=== PATIENT | male | born 1975 | race Caucasian/White ===

== ENCOUNTER 2021-04-04 20:50 | Emergency (ER) | payer OTHER, SELFPAY ==
--- NOTE | 2021-04-04 20:58 | CTR_ITS ---
PROCEDURE INFORMATION: Exam: CT Head Without Contrast Exam date and time: 04/04/2021 8:58 PM Age: 46 years old Clinical indication: Speech disturbance and weakness, extremity; Right; Patient HX: C/O R sided weakness and slurred speech TECHNIQUE: Imaging protocol: Computed tomography of the head without contrast. Radiation optimization: All CT scans at this facility use at least one of these dose optimization techniques: automated exposure control; mA and/or kV adjustment per patient size (includes targeted exams where dose is matched to clinical indication); or iterative reconstruction. COMPARISON: No relevant prior studies available. RADIATION DOSE METRICS: Total DLP (mGy-cm): 1708.7 FINDINGS: Brain: There is no acute intracranial hemorrhage or abnormal extra-axial fluid collection identified. There is no intracranial mass effect or shift of midline structures. The greer-white differentiation is preserved throughout. Cerebral ventricles: There is no sulcal or ventricular effacement. The basilar cisterns are open. No hydrocephalus. Paranasal sinuses: The visualized sinuses are unremarkable. Mastoid air cells: There is no mastoid effusion detected. Orbital cavity: Bilateral proptosis is noted. Correlate with clinical information regarding thyroid function. Bones/joints: No calvarial fracture or destructive osseous lesions are seen. Soft tissues: Unremarkable. CT/CT head wo con* [id number] IMPRESSION: No acute intracranial pathology identified by CT. If there is persistent clinical concern, suggest follow-up MRI. Radiation Dose CTDIVOL = (mGy): DLP = 1708.7 (mGy-cm)
[2021-04-04 21:04] VITALS: BP 130/94; PULSE 97; RESP 19; TEMP 37.1; O2SAT 97; BMI 24.8
--- NOTE | 2021-04-04 21:12 | ECG_ITS ---
[facility] Test Date: 2021-04-04 Pat Name: Zak Maurer Department: Room: Gender: Male Payroll Secretary: : 1975 Requested By: Damon Lee Order Number: [id number] Reading MD: GREGORIO RDZ Measurements Intervals Majestic Rate: 95 P: 38 NC: 143 QRS: 12 QRSD: 91 T: 30 QT: 350 QTc: 442 Interpretive Statements SINUS RHYTHM No previous ECG available for comparison Electronically Signed On 04-05-2021 12:52:14 BRAKE LINING DRILLER by GREGORIO RDZ [id number]
--- NOTE | 2021-04-04 21:12 | CTR_ITS ---
PROCEDURE INFORMATION: Exam: CT Angiography Head With Contrast, Arteriography Exam date and time: 04/04/2021 9:12 PM Age: 46 years old Clinical indication: Speech disturbance and weakness; Patient HX: C/O R sided weakness and slurred speech; Additional info: Headache, weakness TECHNIQUE: Imaging protocol: Computed tomography angiography of the head with contrast. Exam focused on the arteries. 3D rendering (Not supervised by radiologist): MIP and/or 3D reconstructed images were created by the technologist. Radiation optimization: All CT scans at this facility use at least one of these dose optimization techniques: automated exposure control; mA and/or kV adjustment per patient size (includes targeted exams where dose is matched to clinical indication); or iterative reconstruction. Contrast material: OMNI 350; Contrast volume: 95 ml; Contrast route: INTRAVENOUS (IV); COMPARISON: CT head wo con* [id number] 04/04/2021 9:50 PM RADIATION DOSE METRICS: Total DLP (mGy-cm): 2229.66 FINDINGS: ANTERIOR CIRCULATION: Right internal carotid artery: Unremarkable. Intracranial segment is patent with no significant stenosis. No aneurysm. Right middle cerebral artery: Unremarkable. No occlusion or significant stenosis. No aneurysm. Right anterior cerebral artery: Unremarkable. No occlusion or significant stenosis. No aneurysm. Left internal carotid artery: Unremarkable. Intracranial segment is patent with no significant stenosis. No aneurysm. Left middle cerebral artery: Unremarkable. No occlusion or significant stenosis. No aneurysm. Left anterior cerebral artery: Unremarkable. No occlusion or significant stenosis. No aneurysm. POSTERIOR CIRCULATION: Right vertebral artery: Unremarkable. No occlusion or significant stenosis. No aneurysm. Left vertebral artery: Unremarkable. No occlusion or significant stenosis. No aneurysm. Basilar artery: Unremarkable. No occlusion or significant stenosis. No aneurysm. Right posterior cerebral artery: Unremarkable. No occlusion or significant stenosis. No aneurysm. Left posterior cerebral artery: Unremarkable. No occlusion or significant stenosis. No aneurysm. IMPRESSION: No large vessel stenosis or occlusion. PROCEDURE INFORMATION: Exam: CT Angiography Neck With Contrast Exam date and time: 04/04/2021 9:12 PM Age: 46 years old Clinical indication: Speech disturbance and weakness; Patient HX: C/O R sided weakness and slurred speech; Additional info: Headache, weakness TECHNIQUE: Imaging protocol: Computed tomography angiography of the neck with contrast. 3D rendering (Not supervised by radiologist): MIP and/or 3D reconstructed images were created by the technologist. Radiation optimization: All CT scans at this facility use at least one of these dose optimization techniques: automated exposure control; mA and/or kV adjustment per patient size (includes targeted exams where dose is matched to clinical indication); or iterative reconstruction. Contrast material: OMNI 350; Contrast volume: 95 ml; Contrast route: INTRAVENOUS (IV); COMPARISON: CT head wo con* [id number] 04/04/2021 9:50 PM RADIATION DOSE METRICS: Total DLP (mGy-cm): 2229.66 FINDINGS: Right common carotid artery: No stenosis. No dissection or occlusion. Right internal carotid artery: No stenosis of the extracranial segment. No dissection or occlusion. Right external carotid artery: No occlusion or stenosis of the origin. Left common carotid artery: No stenosis. No dissection or occlusion. Left internal carotid artery: No stenosis of the extracranial segment. No dissection or occlusion. Left external carotid artery: No occlusion or stenosis of the origin. Right vertebral artery: No stenosis. No dissection or occlusion. Left vertebral artery: No stenosis. No dissection or occlusion. Lymph nodes: Multiple small to mildly prominent cervical and supraclavicular lymph nodes are nonspecific. CT/CT angio headneck* [id number] IMPRESSION: No acute vascular abnormality identified in the neck. REFERENCES: NASCET CRITERIA. The degree of internal carotid artery stenosis is based on NASCET criteria. Normal is no stenosis. Mild is less than 50% stenosis. Moderate is 50-69% stenosis. Severe is 70% to 99% stenosis. Total occlusion is no detectable patent lumen. Radiation Dose CTDIVOL = (mGy): DLP = 2229.66~2229.66 (mGy-cm)
[2021-04-04] MEDS: HYDROmorphone 1 mg/mL INJ 1 mL IVP (21:19)
[2021-04-04] MEDS: ondansetron 2 mg/ML SDV 2 mL 4 MG IVP (21:20)
[2021-04-04 21:31] LABS: Basophils # 0.1 10^3/uL (0.0-0.1); Basophils % 0.9 %; Eosinophils # 0.1 10^3/uL (0.0-0.8); Hematocrit 41.8 % (42.0-52.0); Hemoglobin 14.7 g/dL (11.7-16.6); Lymphocytes # 2.1 10^3/uL (0.8-4.8); Lymphocytes % 31.5 %; Mean Corpuscular HGB Conc 35.2 g/dL (30.0-36.0); Mean Corpuscular Hemoglobin 32.6 pg (28.0-34.0); Mean Corpuscular Volume 92.7 fl (80-94); Monocytes # 0.9 10^3/uL (0.2-0.9); Monocytes % 13.1 %; Neutrophils % 52.2 %; Nucleated Red Blood Cells % 0 %; Platelet Count 277 10^3/cmm (130-400); Red Blood Count 4.51 10^6/uL (4.1-5.3); Red Cell Distribution Width 11.1 % (12.1-15.1); White Blood Count 6.5 10^3/uL (4.0-10.0)
--- NOTE | 2021-04-04 21:39 | W.ED.NEUROSD ---
HPI - Neuro Symptoms/Deficit General: Chief Complaint: Neuro Symptoms/Deficit Stated Complaint: Stroke Symptoms Time Seen by Provider: 04/04/21 21:12 History of Present Illness: HPI Narrative: 46-year-old male who says he had a stroke 3 days ago. He was seen at an outside facility ([facility] in [place]). He left there AMA. He had some residual right-sided weakness, trouble with speech, trouble swallowing, and trouble following directions with some mental status changes. His main complaint tonight is that of a headache. His headache is posterior and radiates down to his shoulders bilaterally. He does not know any of the results of his tests that he had at [facility]. He woke up on the floor, was scared and left. Onset (ago): day(s) Timing confirmed by: spouse Location: speech, right arm and right leg History of same: Yes Severity: moderate Quality: weak, numb and tingling Relieving factors: none Exacerbating factors: none On Anticoagulants: No Associated symptoms: Reports headache(s), tingling and weakness; Deny chest pain, cough, diaphoresis, fevers/chills, nausea, seizures, short of breath or vomiting Treatments Prior to Arrival: other Review of Systems Const: Denies: fever(s) or diaphoresis Card: Denies: chest pain Resp: Denies: dyspnea, productive cough or non-productive cough GI: Denies: nausea or vomiting Neuro: Reports: headache(s) NIH stroke score NIHSS: Level Of Consciousness - 1a: 0 Level Of Consciousness Questions - 1b: Both Correct Level Of Consciousness Commands - 1c: Both Correct Best Gaze - 2: Normal Visual Brito - 3: No Visual Loss Facial Palsy - 4: Normal Motor Arm Right - 5: No Drift Motor Arm Left - 5: No Drift Motor Leg Right - 6: No Drift Motor Leg Left - 6: No Drift Limb Ataxia - 7: Absent Sensory - 8: Normal Best Language - 9: Mild/Moderate Aphasia Dysarthia - 10: Mild/Moderate Dysarthia Extinction And Inattention - 11: 0 Score: Total Score: 2 Physical Exam Const: COMMON NORMALS: no acute distress GENERAL APPEARANCE: cooperative, well developed and lethargic (Very mildly) ORIENTATION/CONSCIOUSNESS: Yes lethargic (Very mildly) HENMT: COMMON NORMALS: normocephalic, atraumatic and Normal external nose present HEAD & SCALP: normocephalic and atraumatic FACE & SINUS: normal facial exam NOSE: Normal external nose present MOUTH: Normal oral and palatal mucosa present THROAT: posterior oropharynx normal Eye: COMMON NORMALS: Equal, round and reactive pupils present and EOMs intact bilaterally VISUAL BRITO: No peripheral vision loss and No central vision loss PUPIL: Yes Equal, round and reactive pupils present Neuro: SENSORIUM/ORIENTATION: Yes lethargic (Very mildly) Course Vital Signs: Vital signs: Vital Signs Temperature 98.8 F 04/04/21 21:04 Pulse Rate 88 04/04/21 23:24 Respiratory Rate 16 04/04/21 23:24 Blood Pressure 116/63 04/04/21 23:24 Pulse Oximetry 96 04/04/21 23:24 MDM - Neuro Symptoms/Deficit MDM Narrative: Medical decision making narrative: Obtain records from [facility]. The patient did in fact have an MRI there, that was read as normal. No acute stroke. Symptoms have not changed significantly over the past 3 days. He has a negative head CT here as well as a negative CTA. With his posterior headache, there was some concern over potential vertebral artery dissection, although CT is normal serum work-up was normal save an alcohol level of 256. It was 302 at [facility]. The patient admits to being a daily drinker. His CBC is normal, however he was given an IV dose of thiamine, as some of his symptoms could be from thiamine deficiency acutely. As for the headache, it improved with Dilaudid initially. He was given a dose of IV Depacon to see if this improves his symptoms. He will be allowed discharge, but will need to follow-up with a primary care physician. Lab Data: Labs: Lab Results 04/04/21 04/04/21 04/04/21 21:02 21:02 21:02 WBC 6.5 10^3/uL 10^3/ uL (4.0-10.0) RBC 4.51 10^6/uL 10^6 /uL (4.1-5.3) Hgb 14.7 g/dL g/dL (11.7-16.6) Hct 41.8 % L % (42.0-52.0) MCV 92.7 fl fl (80-94) MCH 32.6 pg pg (28.0-34.0) MCHC 35.2 g/dL g/dL (30.0-36.0) RDW 11.1 % L % (12.1-15.1) Plt Count 277 10^3/cmm 10^3 /cmm (130-400) MPV 10.0 fL fL (7.4-10.4) Neut % (Auto) 52.2 % % Lymph % (Auto) 31.5 % % Nuckolls % (Auto) 13.1 % % Eos % (Auto) 2.0 % % Baso % (Auto) 0.9 % % Neut # (Auto) 3.40 10^3/uL 10^3 /uL (1.8-7.7) Lymph # (Auto) 2.1 10^3/uL 10^3/ uL (0.8-4.8) Nuckolls # (Auto) 0.9 10^3/uL 10^3/ uL (0.2-0.9) Eos # (Auto) 0.1 10^3/uL 10^3/ uL (0.0-0.8) Baso # (Auto) 0.1 10^3/uL 10^3/ uL (0.0-0.1) Nucleated RBC % (a uto) 0 % % Nucleated RBCs # 0.0 /100WBC /100W BC PT 13.80 SECONDS SEC ONDS (12.1-14.9) INR 1.03 (0.8-1.2) APTT 26.3 SECONDS SECO NDS (23.9-36.7) Sodium 143 mmol/L mmol/L (136-145) Potassium 3.9 mmol/L mmol/L (3.5-5.1) Chloride 106 mmol/L mmol/L (98-107) Carbon Dioxide 25 mmol/L mmol/L (22-29) Anion Gap 15.9 (5-19) BUN 8 mg/dL mg/dL (6-20) Creatinine 0.9 mg/dL mg/dL (0.7-1.2) GFR Calculation 91.7 mL/min mL/mi n (90-130) Glucose 97 mg/dL mg/dL (65-115) Calculated Osmolal ity 294 mOsm/kg mOsm/ kg (285-295) Calcium 8.8 mg/dL mg/dL (8.5-10.5) Total Bilirubin 0.2 mg/dL mg/dL (0.15-1.2) AST 67 U/L H U/L (0-40) ALT 78 U/L H U/L (0-41) Alkaline Phosphata se 104 IU/L IU/L (40-130) Total Protein 7.1 g/dL g/dL (6.6-8.7) Albumin 4.7 g/dL g/dL (3.5-5.2) Globulin 2.4 g/dL g/dL (1.3-4.6) Urine Color Urine Appearance Urine pH Ur Specific Gravit y Urine Protein Urine Glucose (UA) Urine Ketones Urine Blood Urine Nitrate Urine Bilirubin Urine Urobilinogen Ur Leukocyte Janie ase Urine Opiates Scre en Ur Barbiturates Sc reen Ur Phencyclidine S crn Ur Amphetamines Sc reen U Benzodiazepines Scrn Urine Cocaine Scre en U Marijuana (THC) Screen Ethyl Alcohol 256 mg/dL H mg/dL (0-10) 04/04/21 04/04/21 21:46 21:46 WBC RBC Hgb Hct MCV MCH MCHC RDW Plt Count MPV Neut % (Auto) Lymph % (Auto) Nuckolls % (Auto) Eos % (Auto) Baso % (Auto) Neut # (Auto) Lymph # (Auto) Nuckolls # (Auto) Eos # (Auto) Baso # (Auto) Nucleated RBC % (a uto) Nucleated RBCs # PT INR APTT Sodium Potassium Chloride Carbon Dioxide Anion Gap BUN Creatinine GFR Calculation Glucose Calculated Osmolal ity Calcium Total Bilirubin AST ALT Alkaline Phosphata se Total Protein Albumin Globulin Urine Color Yellow (Yellow) Urine Appearance Clear (CLEAR) Urine pH 5 (5-7) Ur Specific Gravit y 1.005 (1.005-1.030) Urine Protein Neg (Negative) Urine Glucose (UA) Norm (Normal) Urine Ketones Negative (Negative) Urine Blood Neg (Negative) Urine Nitrate Negative (Negative) Urine Bilirubin Neg (Negative) Urine Urobilinogen Norm mg/dL mg/dL (Negative) Ur Leukocyte Janie ase Negative (Negative) Urine Opiates Scre en Positive ng/mL H ng/mL (Negative) Ur Barbiturates Sc reen Negative ng/mL ng /mL (Negative) Ur Phencyclidine S crn Negative ng/mL ng /mL (Negative) Ur Amphetamines Sc reen Negative ng/mL ng /mL (Negative) U Benzodiazepines Scrn Negative ng/mL ng /mL (Negative) Urine Cocaine Scre en Negative ng/mL ng /mL (Negative) U Marijuana (THC) Screen Negative ng/mL ng /mL (Negative) Ethyl Alcohol Discharge Plan Discharge Patient Disposition: Home Clinical Impression: Paresthesia Headache Qualifiers: Headache type: unspecified Headache chronicity pattern: acute headache Intractability: not intractable Qualified Code(s): R51.9 - Headache, unspecified Alcohol intoxication Qualifiers: Complication of substance-induced condition: uncomplicated Qualified Code(s): F10.920 - Alcohol use, unspecified with intoxication, uncomplicated Condition: Stable Discharge Orders: Discharge ED (Routine); Ordered 04/04/21 Ordered By: Damon Jaramillo Discharge Diet: Advance as tolerated Discharge Activity: Increase activity as tolerated Patient Instructions: Alcohol Intoxication (ED), Acute Headache (ED), Paresthesia (ED) Activity Restrictions/Additional Instructions: Return for fever greater than 100, worsening mental status, worsening headache, other concerning symptoms. A case management referral has been placed for primary care follow-up. Coding Level of Care Code ED Mill Attendant for Sohail Fwd Exam Expanded Problem Focused
[2021-04-04 21:43] LABS: Alanine Aminotransferase 78 U/L (0-41); Albumin Level 4.7 g/dL (3.5-5.2); Alcohol Level 256 mg/dL (0-10); Alkaline Phosphatase 104 IU/L (40-130); Anion Gap 15.9 (5-19); Aspartate Amino Transferase 67 U/L (0-40); Blood Urea Nitrogen 8 mg/dL (6-20); Calcium 8.8 mg/dL (8.5-10.5); Carbon Dioxide 25 mmol/L (22-29); Chloride 106 mmol/L (98-107); Globulin 2.4 g/dL (1.3-4.6); Glomerular Filtration Rate 91.7 mL/min (90-130); Glucose 97 mg/dL (65-115); Osmolality Calculated 294 mOsm/kg (285-295); Potassium 3.9 mmol/L (3.5-5.1); Sodium 143 mmol/L (136-145); Total Bilirubin 0.2 mg/dL (0.15-1.2); Total Protein 7.1 g/dL (6.6-8.7)
[2021-04-04 21:49] VITALS: BP 110/89; PULSE 101; PULSE 95; RESP 16; O2SAT 96
[2021-04-04 21:54] LABS: INR 1.03 (0.8-1.2)
[2021-04-04 21:55] LABS: Partial Thromboplastin Time 26.3 SECONDS (23.9-36.7)
[2021-04-04 22:02] LABS: Add Urine Microscopic? NO; Charge for UA Resulting for Rev
[2021-04-04] MEDS: iohexol 350 mg/mL 100 mL Btl IV (22:06)
[2021-04-04 22:35] LABS: Bilirubin Urine Neg (Negative); Blood Urine Neg (Negative); Glucose Urine UA Norm (Normal); Ketones Urine Negative (Negative); Nitrate Urine Negative (Negative); Protein Urine Neg (Negative); Specific Gravity, Urine 1.005 (1.005-1.030); Urine Appearance Clear (CLEAR); Urine Color Yellow (Yellow); pH Urine 5 (5-7)
[2021-04-04 22:36] LABS: Leukocyte Esterase Urine Negative (Negative); Urobilinogen Urine Norm (Negative)
[2021-04-04 22:38] LABS: Amphetamines Screen Urine Negative (Negative); Barbiturates Screen Urine Negative (Negative); Benzodiazepines Screen Urine Negative (Negative); Cocaine Screen Urine Negative (Negative); Opiate Screen Urine Positive (Negative); PCP Screen Urine Negative (Negative); THC Screen Urine Negative (Negative)
[2021-04-04] MEDS: valproic acid inj 500 MG in sodium chloride 0.9% 50 ML 55 MG IV (23:04)
[2021-04-04 23:24] VITALS: BP 116/63; PULSE 88; RESP 16; O2SAT 96
--- NOTE | 2021-04-12 13:59 | DCPLANNER ---
dude ranch manager had message to speak with patient about getting established with a primary care physician. dude ranch manager called phone number [phone], unable to speak with patient at this time, and unable to leave a voicemail for patient.
== END 2021-04-04 23:25 | disposition home or self-care (01) ==
PROVIDERS: Emergency Provider Emergency Medicine
DX: R20.2 Paresthesia of skin (principal); R51.9 Headache, unspecified; F10.920 Alcohol use, unspecified with intoxication, uncomplicated
CPT/HCPCS: 70450; 70496; 70498; 80053; 80306; 80307; 81003; 85025; 85610; 85730; 93005; 96365; 96375; 99284; J1170; J2405; J3411; Q9967

== ENCOUNTER 2022-03-12 22:46 | Emergency (ER) | payer OTHER, SELFPAY ==
[2022-03-12 22:48] VITALS: BP 143/83; PULSE 111; RESP 18; TEMP 37.2; O2SAT 95; BMI 26.4
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
[2022-03-12] MEDS: HYDROcodone-acetaminophen 7.5-325 mg Tablet 1 TAB PO (23:24)
[2022-03-13] MEDS: dexamethasone 10 mg/mL INJ IM (00:10)
[2022-03-13] MEDS: ketorolac 30 mg/mL INJ IM (00:12)
--- NOTE | 2022-03-13 00:18 | PC.NURSE ---
Gibson wrap applied to right foot.
[2022-03-13 00:20] VITALS: PULSE 101; RESP 18; O2SAT 97
== END 2022-03-13 00:22 | disposition home or self-care (01) ==
PROVIDERS: Emergency Provider Nurse Practitioner Family
DX: S93.601A Unspecified sprain of right foot, initial encounter (principal); X58.XXXA Exposure to other specified factors, initial encounter; Z79.891 Long term (current) use of opiate analgesic
CPT/HCPCS: 73590; 73630; 96372; 99284; J1100; J1885